=== PATIENT | female | born 1990 | race Caucasian/White ===

== ENCOUNTER 2023-10-21 11:49 | Emergency (ER) | payer OTHER ==
[~2023-10-21] VITALS: Ht 172.7 cm; Wt 106.6 kg
[2023-10-21 12:06] VITALS: BP 140/70; TEMP 98.1
[2023-10-21] MEDS ORDERED: KETOROLAC TROMETHAMINE INJ 60 MG/2 ML VIAL IM ONE (12:30)
[2023-10-21] MEDS ORDERED: CYCLOBENZAPRINE 10 MG TABLET PO ONE (12:30)
[2023-10-21] MEDS ORDERED: CYCLOBENZAPRINE 10 MG TABLET ONE (12:45)
[2023-10-21] MEDS ORDERED: KETOROLAC TROMETHAMINE INJ 30 MG/ML VIAL ONE (12:45)
[2023-10-21] MEDS ORDERED: CYCL5TAB PO (13:11)
[2023-10-21] MEDS ORDERED: KETO10TA2 PO (13:11)
[2023-10-21 13:40] VITALS: O2SAT 100
== END 2023-10-21 13:42 | disposition home or self-care (01) ==
LOC: ER 12:06
DX: S16.1XXA Strain of muscle, fascia and tendon at neck level, initial encounter (principal); Z79.899 Other long term (current) drug therapy; V79.88XA Bus occupant (driver) (passenger) injured in other specified transport accidents, initial encounter; Y93.89 Activity, other specified; Y92.89 Other specified places as the place of occurrence of the external cause; Y99.8 Other external cause status
CPT/HCPCS: 99285; 72125; 96372; 70450; J1885